=== PATIENT | female | born 1970 | race African-American/Black ===

== ENCOUNTER → 2018-05-04 | Day surgery (SDC) | payer OTHER ==
[2018-05-04] VITALS (10 sets, daily range): BP systolic 136–177; BP diastolic 60–96
[~2018-05-04] VITALS: Ht 160 cm; Wt 129.3 kg
[~2018-05-04] MED LIST: ARNUITY ELLIP100 MCG IH; ASPIR 8181 MG ORAL; Bacitracin 50000 Units Vial ONE; Bupivacaine w/Epi 0.5% 30ml Vial INJ ONE; CYCLOBENZAPRINE10 MG ORAL; D5 1/2NS 1,000 ML IV SCH; HYDROCHLOROTHIA25 MG ORAL; HYDROCODON-ACE1 EA13 ORAL; HYDROmorphone 1mg/ml Carpuject SUBQ PRN; Ketorolac 30mg Inj IV PRN; LISINOPRIL20 MG ORAL; LR 1000ml ONE; Lidocaine 1% MPF 10mg/ml 5ml ONE; Metoclopramide 10mg/2ml Inj ONE; NS Irrig 1000ml ONE; NeoSporin Gu Irrig 1ml Amp IRRIG ONE; Norco 5mg/325mg tab ORAL PRN; Propofol 200mg/20ml IV ONE; Sterile Water Irrig 1000ml IRRIG ONE; Tylenol #3 tab (300mg/30mg) ORAL PRN; VENTOLIN HFA18 GM INH; ceFAZolin 1gm IVPB IVPB ONE; celeBREX 200mg Cap **SURGERY PATIENTS ONLY ORAL ONE; fentaNYL 100 mcg/2 mL IV ONE; fentaNYL 100 mcg/2 mL IV PRN; oxyCONTIN 20mg tab ORAL ONE
--- NOTE | 2018-05-04 07:03 | Pre-Procedure Note/Attestation ---
Pre-Procedure Note/Attestation Complete Prior to Procedure Planned Procedure: left Procedure Narrative: left elbow cubital tunnel release and ulnar n transposition Indications for Procedure Pre-Operative Diagnosis: left elbow cubital tunnel syndrome Attestation I attest that I discussed the nature of the procedure; its benefits; risks and complications; and alternatives (and the risks and benefits of such alternatives ), prior to the procedure, with the patient (or the patient's legal parts counter representative). I attest that, if there was a reasonable possibility of needing a blood transfusion, the patient (or the patient's legal parts counter representative) was given the [facility] standardized written summary, pursuant to the [place] Blood Safety Act ([place] Health and Safety Code # 1645, as amended). I attest that I re-evaluated the patient just prior to the surgery and that there has been no change in the patient's H&P, except as documented below: none Amanuel Alcazar MD May 04, 2018 07:02
--- NOTE | 2018-05-04 11:26 | Brief Operative Note ---
Immediate Post Operative Note Operative Note Chief Complaint: left elbow pain Pre-op Diagnosis: left cubital tunnel syndrome Procedure: left cubital tunnel release with ulnar n transposition Post-op Diagnosis: same as pre-op Findings: consistent w/pre-op dx studies Surgeon: md jas Junior Buyer: farnaz boyle Anesthesiologist: md dang/joanna Anesthesia: general Specimen: none Complications: none Condition: stable Fluids: ns Estimated Blood Loss: minimal Drains: none Implant(s) used?: No Katie Boyle May 04, 2018 11:26
--- NOTE | 2018-05-04 11:40 | Immediate Post-Op Evaluation ---
Immediate Post-Op Evalulation Immediate Post-Op Evalulation Procedure: left elbow tendon release Date of Evaluation: May 04, 2018 Time of Evaluation: 11:40 Nausea: No Vomiting: No Sonja Cornell MD May 04, 2018 11:40
--- NOTE | 2018-05-04 11:40 | Anethesia Preoperative Eval ---
Anesthesia Pre-op PMH/ROS General Date of Evaluation: May 04, 2018 Time of Evaluation: 09:00 ASA Score: ASA 4 Mallampati Score Class I : Soft palate, uvula, fauces, pillars visible Class II: Soft palate, uvula, fauces visible Class III: Soft palate, base of uvula visible Class IV: Only hard plate visible Mallampati Classification: Class II Allergies: Coded Allergies: PROCHLORPERAZINE (Verified Allergy, Severe, 05/04/18) bitting of tongue Uncoded Allergies: shellfish (Allergy, Severe, 05/04/18) bitting of the tongue Patient NPO?: Yes Anesthesia Pre-op Phys. Exam Physician Exam Last Vital Signs Date Time Temp Pulse Resp B/P (MAP) Pulse Ox O2 Delivery O2 Flow Rate FiO2 05/04/18 09:38 Room Air 05/04/18 09:10 97.0 88 20 136/82 100 97.0 Airway Exam Mallampati Score: Class II Anesthesia Pre-op A/P Labs Urine Test Test 05/04/18 08:00 Urine HCG, Qualitative Negative (NEGATIVE) Sonja Cornell MD May 04, 2018 11:40
--- NOTE | 2018-05-04 13:24 | 48 Hour Post Anesthesia Eval ---
Post Anesthesia Evaluation Procedure: left elbow tendon release Date of Evaluation: May 04, 2018 Time of Evaluation: 13:23 Nausea: No Vomiting: No Sonja Cornell MD May 04, 2018 13:24
--- NOTE | 2018-05-05 00:15 | Operative Note - Dictated ---
DATE OF OPERATION: 05/04/2018 PREOPERATIVE DIAGNOSES: 1. Left elbow history of previous injury with recurrent cubital tunnel syndrome. 2. Medial epicondylitis. POSTOPERATIVE DIAGNOSES: 1. 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 2. Left elbow medial epicondylitis. PROCEDURES: 1. Left elbow medial epicondylar release with subfascial flap. 2. Left elbow neurolysis of the ulnar nerve at the level of the cubital tunnel syndrome. 3. Left elbow anterior ulnar nerve transposition through a subfascial sling. SURGEON: Amanuel Alcazar M.D. SUPERVISOR SPEECH: Ktaie Salguero PA-C. ANESTHESIOLOGIST: Dr. Rohith Wooten MD ANESTHESIA: General LMA anesthesia combined with local block. ESTIMATED BLOOD LOSS: Less than 20 mL. COMPLICATIONS: None. TOURNIQUET TIME: 50 minutes. BRIEF HISTORY: The patient is a very pleasant 47-year-old female who has had previous elbow surgery. She continues to have numbness and tingling in the small ring finger and continues with medial epicondylar pain. After full discussion of risks and benefits of surgery and complications associated with it including infection, bleeding, neurovascular complication, possibility of ulnar nerve dysfunction, loss of sensation, loss of motor function, continued pain, continued stiffness, and recurrence of symptoms, she opted for surgical treatment as described above. OPERATIVE PROCEDURE: The patient was brought to the operating table and was placed supine. All pressure points were well-padded. General LMA anesthesia was induced. The area of the incision was injected with 0.5% Marcaine with epinephrine. It should be noted that previous incision was somewhat posterior, however, in order to not create two parallel incisions, the previous incision was used. The incision was taken through the subcutaneous tissue and an anterior flap was developed to reach the medial epicondylar area. Once this was reached, the dissection was taken proximally and the ulnar nerve was identified proximally where there was no scar tissue. Subsequently, meticulous neurolysis of the ulnar nerve was performed coming distally. There was extensive scar tissue and ulnar nerve was followed all the way into the cubital tunnel area posterior to the medial epicondyle. This appeared to make a sharp dive posteriorly and the ulnar nerve was kinked and narrowed in that area. Very meticulous and careful dissection was performed and the ulnar nerve was freed all the way out to the motor branches to the flexor carpi ulnaris. Once this was completed, care was given to the medial epicondylar release. The medial epicondyle was identified. The fascia of the common flexors were identified. A medial epicondylar release was performed and the edges were debrided. A fascial sling was then raised. At this point, care was given to the ulnar nerve transposition. At this point, the freed ulnar nerve was then transposed anteriorly, anterior to the medial epicondyle. The fascial sling was used to stabilize the ulnar nerve there and the fascial sling was repaired using 3-0 Vicryl suture. The ulnar nerve was free and there was plenty of space in this fascial sling for the ulnar nerve to slide back and forth. At this point, the floor of the cubital tunnel was then repaired using 2-0 Vicryl suture so that even if the fascial sling failed, the ulnar nerve would not fall back in the cubital tunnel area. At this point, the wounds were thoroughly irrigated using copious amount of fluid. Subcutaneous tissue was closed using 2-0 Vicryl suture. The skin was closed using interrupted horizontal-mattress nylon sutures. Sterile dressing was applied and all lap counts and instrument counts were correct. Amanuel Alcazar M.D. DR: KATELYN JOB#: [id number] CC: [email or web address]
== END | disposition home or self-care (01) ==
LOC: SUR 08:43
DX: G56.22 Lesion of ulnar nerve, left upper limb (principal); M77.02 Medial epicondylitis, left elbow; J45.909 Unspecified asthma, uncomplicated; G47.30 Sleep apnea, unspecified; E66.3 Overweight; F17.210 Nicotine dependence, cigarettes, uncomplicated; I10 Essential (primary) hypertension; Z88.8 Allergy status to other drugs, medicaments and biological substances; Z91.013 Allergy to seafood
CPT/HCPCS: 24358; 64718; 81025; J0690; J1885; J2405; J2704; J2765; J3010; 94003; 94150